=== PATIENT | female | born 2000 | race Caucasian/White ===

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

== ENCOUNTER → 2019-01-22 | Outpatient (CLI) | payer OTHER | LOC: RAD 10:28 | DX: M79.641 Pain in right hand (principal) ==

== ENCOUNTER 2019-02-14 13:34 | Emergency (ER) | payer OTHER ==
[~2019-02-14] VITALS: Ht 167.6 cm; Wt 61.2 kg
[2019-02-14 15:25] VITALS: BP 114/68
[2019-02-14] MEDS ORDERED: NORCO 5-325 TA1 EAC1 PO (15:26)
== END 2019-02-14 15:25 | disposition home or self-care (01) ==
LOC: ER 13:34
DX: S62.350A Nondisplaced fracture of shaft of second metacarpal bone, right hand, initial encounter for closed fracture (principal); S62.352A Nondisplaced fracture of shaft of third metacarpal bone, right hand, initial encounter for closed fracture; S62.354A Nondisplaced fracture of shaft of fourth metacarpal bone, right hand, initial encounter for closed fracture; S62.356A Nondisplaced fracture of shaft of fifth metacarpal bone, right hand, initial encounter for closed fracture; E03.9 Hypothyroidism, unspecified; X50.1XXA Overexertion from prolonged static or awkward postures, initial encounter; Y93.89 Activity, other specified; Y92.89 Other specified places as the place of occurrence of the external cause; Y99.8 Other external cause status

== ENCOUNTER → 2019-02-14 | Outpatient (CLI) | payer OTHER ==
[~2019-02-14] MED LIST: NORCO 5-325 TA1 EAC1 PO
== END ==
LOC: RAD 13:09
DX: S62.390A Other fracture of second metacarpal bone, right hand, initial encounter for closed fracture (principal); S62.392A Other fracture of third metacarpal bone, right hand, initial encounter for closed fracture; S62.394A Other fracture of fourth metacarpal bone, right hand, initial encounter for closed fracture; S62.356A Nondisplaced fracture of shaft of fifth metacarpal bone, right hand, initial encounter for closed fracture; X58.XXXA Exposure to other specified factors, initial encounter; Y93.89 Activity, other specified; Y92.89 Other specified places as the place of occurrence of the external cause; Y99.8 Other external cause status

== ENCOUNTER 2019-02-24 13:12 | Day surgery (SDC) | payer OTHER ==
[~2019-02-24] VITALS: Ht 167.6 cm; Wt 70.8 kg
--- NOTE | ~2019-02-24 | O ---
[facility] [place] [address] OPERATIVE REPORT Name: SANIA STRINGER Room #: [facility] M.R.#: [id number] Admission: 02/24/19 ������������������ Attend Phys: Patricia Jasmine, Discharge: 02/24/19 ������������������ Date of : 89 Report #: [id number] THIS REPORT FOR: //name// CC: Fred Stringer FAM unknown Patricia Jasmine DATE OF SERVICE: 02/24/2019 PREOPERATIVE DIAGNOSES: Right index finger displaced metacarpal fracture and right long finger, ring finger, small finger nondisplaced metacarpal fractures. POSTOPERATIVE DIAGNOSES: Right index finger displaced metacarpal fracture and right long finger, ring finger, small finger nondisplaced metacarpal fractures. PROCEDURES PERFORMED: 1. Closed reduction and cast application right index finger displaced metacarpal fracture. 2. Closed treatment right long, ring and small finger metacarpal fractures. SURGEON: Patricia Jasmine MD. ANESTHESIA: General mask anesthesia. ESTIMATED BLOOD LOSS: None. TOURNIQUET TIME: None. COMPLICATIONS: None. CONDITION: Stable. DISPOSITION: Recovery room. INDICATIONS: The patient is a 19-year-old female with the above-mentioned diagnoses. We discussed the diagnoses as well as treatment options. The patient expressed a desire to attempt closed reduction and casting. We discussed that I would be willing to try this, although I am not sure that I would be able to reduce the fracture of the index metacarpal due to some bony fragmentation and this would require weekly x-rays to evaluate the positioning. This fracture may shift and she may then require surgical treatment. We also discussed the possibility of undergoing open reduction and internal fixation with plate and screws on the index, possibly plate and screws on the ring and K-wires on the small. We discussed the risks, benefits, alternatives and complications of each potential procedure including, but not limited to stiffness, infection, damage to blood vessels or nerves, hardware problems, the [facility] [address] [place] [address] OPERATIVE REPORT Name: SANIA STRINGER Room #: [facility] M.R.#: [id number] Admission: 02/24/19 ������������������ Attend Phys: Patricia Jasmine, Discharge: 02/24/19 ������������������ Date of : 89 Report #: [id number] bone nonhealing the right way. We also discussed with attempted closed reduction and casting. She may require subsequent surgical fixation. The patient's parents were present at her bedside. Questions were encouraged and answered to the best of my ability. DESCRIPTION OF PROCEDURE: The patient was brought back to the operating room and placed on operating table in supine position. She received preoperative antibiotics. A tourniquet was placed over padding on the patient's right upper extremity. Next, fluoroscopy was brought in and a closed reduction maneuver was performed. I was actually able to reduce the index finger metacarpal without significant difficulty. A stockinette and a cast padding were applied to the hand and wrist past the MP joints and a short arm cast past the MP joint was placed. I was then using fluoroscopic guidance able to mold the fracture and maintain alignment of the index metacarpal. It was approximately translated 20% or so volarly. The fracture was stable. The other fractures had maintained alignment. They were appropriately aligned and there was no rotational or angular deformity. The cast was carefully padded and molded. Live fluoroscopic views were taken multiple times as well as AP, PA, lateral and oblique views, which showed maintained position of the fracture after the cast had hardened. All fingers were pink with brisk capillary refill after application of the cast. The patient was then transferred to the recovery room in stable condition. ��������������������������������������������� ���������������������������������������� By: ��������������������������������������������� [id number] Patricia Jasmine MD /radha
[~2019-02-24 13:12] MED LIST changes: +FISH OIL 1,001000 M2 PO
[2019-02-24 14:01] VITALS: BP 109/62
[2019-02-24 16:30] VITALS: BP 109/62
== END 2019-02-24 17:05 | disposition home or self-care (01) ==
LOC: OR 13:12 → TBA 14:38 → OR 14:50
DX: S62.321A Displaced fracture of shaft of second metacarpal bone, left hand, initial encounter for closed fracture (principal); S62.302A Unspecified fracture of third metacarpal bone, right hand, initial encounter for closed fracture; S62.304A Unspecified fracture of fourth metacarpal bone, right hand, initial encounter for closed fracture; S62.306A Unspecified fracture of fifth metacarpal bone, right hand, initial encounter for closed fracture; E03.9 Hypothyroidism, unspecified; Z98.890 Other specified postprocedural states; Z79.899 Other long term (current) drug therapy; X58.XXXA Exposure to other specified factors, initial encounter; Y93.89 Activity, other specified; Y92.89 Other specified places as the place of occurrence of the external cause; Y99.8 Other external cause status
CPT/HCPCS: 50010; 50101; 50386; 50445; 52122; 57006; 57091; 57178; 62110; 62900; 70005